=== PATIENT | female | born 1985 | race Hispanic/Latino ===

== ENCOUNTER → 2023-10-08 | Emergency (ER) | payer SELFPAY ==
[~2023-10-08] MED LIST: DIPHENHYDRAMINE 25 MG TAB/CAP ONE; DOXYCYCLINE 100 MG CAP PO ONE; FAMOTIDINE 20 MG TAB ONE; predniSONE 20 MG TAB ONE
--- NOTE | 2023-10-08 11:15 | ER ---
Nurse's Notes [facility] Name: Coty Scott Age: 37 yrs Sex: Female : 1985 Arrival Date: 10/08/2023 Time: 10:34 Bed 12 Private MD: Diagnosis: Dermatitis, unspecified;Insect allergy status;Allergic contact dermatitis, unspecified cause Presentation: 10/08 10:47 Chief complaint: Patient states: Rash to legs for 4 days with itching. Coronavirus ll1 screen: Client denies travel out of the [place] in the last 14 days. At this time, the client does not indicate any symptoms associated with coronavirus-19. Ebola Screen: Patient denies travel to an Ebola-affected area in the 21 days before illness onset. Initial Sepsis Screen: Does the patient meet any 2 criteria? No. Patient's initial sepsis screen is negative. Does the patient have a suspected source of infection? Yes: Skin breakdown/wound. Risk Assessment: Do you want to hurt yourself or someone else? Patient reports no desire to harm self or others. Onset of symptoms was October 05, 2023. 10:47 Method Of Arrival: Ambulatory ll1 10:47 Acuity: EBONY 4 ll1 Historical: - Allergies: 10:48 No Known Allergies; ll1 - PMHx: 10:48 None; ll1 - PSHx: 10:48 None; ll1 - Immunization history:: Adult Immunizations up to date. - Social history:: Smoking status: Patient denies any tobacco usage or history of. - Family history:: not pertinent. Screenin:01 [facility] ED Fall Risk Assessment (Adult) Score/Fall Risk Level 0 - 2 = Low Risk. Abuse as6 screen: Denies threats or abuse. Denies injuries from another. Nutritional screening: No deficits noted. Tuberculosis screening: No symptoms or risk factors identified. Assessment: 12:06 General: Appears in no apparent distress. Behavior is calm, cooperative. Pain: Denies as6 pain. Respiratory: Airway is patent Trachea midline Respiratory effort is even, unlabored, Respiratory pattern is regular, symmetrical. Derm: Rash noted that is macular, itchy, papular, raised, on left leg and right leg and left arm and right arm and abdomen and chest and buttocks and back. Vital Signs: 10:47 BP 135 / 82; Pulse 75; Resp 16; Temp 98; Pulse Ox 100% ; Weight 63.5 kg; Height 5 ft. 0 ll1 in. ; Pain 0/10; 10:47 Body Mass Index 27.34 (63.50 kg, 152.4 cm) ll1 10:47 Pain Scale: Adult ll1 ED Course: 10:38 Patient arrived in ED. mr 10:40 Herberth Zelaya MD is Attending Physician. [facility] 10:48 Triage completed. ll1 10:48 Arm band placed on Patient placed in an exam room, on a stretcher. ll1 11:13 Christopher Veliz DO is Referral Physician. [facility] 11:18 Germaine Carmona, JAH is Primary Nurse. ll1 11:18 PREGU Sent. ll1 11:18 Urinalysis w/ reflexes Sent. ll1 12:01 Bed in low position. Call light in reach. Provided Education on: follow up, rx teaching as6 . 12:01 No provider procedures requiring assistance completed. Patient did not have IV access as6 during this emergency room visit. Administered Medications: 12:00 Drug: Famotidine PO 40 mg PO once Route: PO; as6 12:02 Follow up: Response: No adverse reaction as6 12:00 Drug: predniSONE PO 60 mg PO once Route: PO; as6 12:02 Follow up: Response: No adverse reaction as6 12:00 Drug: Doxycycline PO 200 mg PO once Route: PO; as6 12:02 Follow up: Response: No adverse reaction as6 12:01 Drug: diphenhydrAMINE PO 50 mg PO once Route: PO; as6 12:02 Follow up: Response: No adverse reaction as6 Medication: 12:01 VIS not applicable for this client. as6 Outcome: 11:14 Discharge ordered by . [facility] 12:02 Discharged to home ambulatory, with significant other, as6 12:02 Condition: stable 12:05 Discharge instructions given to patient, significant other, Instructed on discharge as6 instructions, follow up and referral plans. medication usage, Demonstrated understanding of instructions, follow-up care, medications, Prescriptions given X 4, 12:06 Patient left the ED. as6 Signatures: Herberth Zelaya MD MD cha Rivera, Mary, Reg Reg mr Germaine Carmona, RN RN 1 Santosh Mack RN RN as6
--- NOTE | 2023-10-08 11:15 | EDPHYS ---
Physician Documentation [facility] Name: Coty Scott Age: 37 yrs Sex: Female : 1985 Arrival Date: 10/08/2023 Time: 10:34 Bed 12 Private MD: ED Physician Herberth Zelaya HPI: 10/08 11:07 This 37 yrs old Female presents to ER via Ambulatory with complaints of Rash. chai 11:07 The patient's rash thought to be caused by insect bites, Dermatitis. The rash is chai located on the body diffusely. The rash can be described as erythematous, patchy, raised. Onset: The symptoms/episode began/occurred 3 day(s) ago. Associated signs and symptoms: Pertinent positives: burning sensation, itching. Severity of symptoms: At their worst the symptoms were moderate in the emergency department the symptoms are unchanged. The patient has not experienced similar symptoms in the past. Historical: - Allergies: 10:48 No Known Allergies; ll1 - PMHx: 10:48 None; ll1 - PSHx: 10:48 None; ll1 - Immunization history:: Adult Immunizations up to date. - Social history:: Smoking status: Patient denies any tobacco usage or history of. - Family history:: not pertinent. ROS: 11:07 Constitutional: Negative for fever, chills, and weight loss, Eyes: Negative for injury, chai pain, redness, and discharge, ENT: Negative for injury, pain, and discharge, Neck: Negative for injury, pain, and swelling, Cardiovascular: Negative for chest pain, palpitations, and edema, Respiratory: Negative for shortness of breath, cough, wheezing, and pleuritic chest pain, Abdomen/GI: Negative for abdominal pain, nausea, vomiting, diarrhea, and constipation, Back: Negative for injury and pain, : Negative for injury, bleeding, discharge, and swelling, MS/Extremity: Negative for injury and deformity, Neuro: Negative for headache, weakness, numbness, tingling, and seizure, Psych: Negative for depression, anxiety, suicide ideation, homicidal ideation, and hallucinations, Allergy/Immunology: Negative for hives, rash, and allergies, Endocrine: Negative for neck swelling, polydipsia, polyuria, polyphagia, and marked weight changes, Hematologic/Lymphatic: Negative for swollen nodes, abnormal bleeding, and unusual bruising, 11:07 Skin: Positive for cellulitis, erythema, rash, diffusely, Exam: 11:07 Constitutional: This is a well developed, well nourished patient who is awake, alert, chai and in no acute distress. Head/Face: Normocephalic, atraumatic. Eyes: Pupils equal round and reactive to light, extra-ocular motions intact. Lids and lashes normal. Conjunctiva and sclera are non-icteric and not injected. Cornea within normal limits. Periorbital areas with no swelling, redness, or edema. ENT: Nares patent. No nasal discharge, no septal abnormalities noted. Tympanic membranes are normal and external auditory canals are clear. Oropharynx with no redness, swelling, or masses, exudates, or evidence of obstruction, uvula midline. Mucous membranes moist. Neck: Trachea midline, no thyromegaly or masses palpated, and no cervical lymphadenopathy. Supple, full range of motion without nuchal rigidity, or vertebral point tenderness. No Meningismus. Chest/axilla: Normal chest wall appearance and motion. Nontender with no deformity. No lesions are appreciated. Cardiovascular: Regular rate and rhythm with a normal S1 and S2. No gallops, murmurs, or rubs. Normal PMI, no JVD. No pulse deficits. Respiratory: Lungs have equal breath sounds bilaterally, clear to auscultation and percussion. No rales, rhonchi or wheezes noted. No increased work of breathing, no retractions or nasal flaring. Abdomen/GI: Soft, non-tender, with normal bowel sounds. No distension or tympany. No guarding or rebound. No evidence of tenderness throughout. Back: No spinal tenderness. No costovertebral tenderness. Full range of motion. Pelvic Exam: Normal external genitalia. Speculum exam with closed cervical os, no discharge or bleeding noted. Bimanual exam with normal adnexa, no adnexal or cervical motion tenderness. Normal uterus. Female : Normal external genitalia. MS/ Extremity: Pulses equal, no cyanosis. Neurovascular intact. Full, normal range of motion. Neuro: Awake and alert, GCS 15, oriented to person, place, time, and situation. Cranial nerves II-XII grossly intact. Motor strength 5/5 in all extremities. Sensory grossly intact. Cerebellar exam normal. Normal gait. Psych: Awake, alert, with orientation to person, place and time. Behavior, mood, and affect are within normal limits. 11:07 Skin: Appearance: Color: normal in color, Temperature: normal temperature, Moisture: normal moisture, petechiae, not noted, ecchymosis, not noted, flushing, not noted, diaphoresis is not appreciated, cellulitis, that is mild, induration, that is mild is noted, located on the back, buttocks, chest, abdomen, right arm, left arm, right leg and left leg, Vital Signs: 10:47 BP 135 / 82; Pulse 75; Resp 16; Temp 98; Pulse Ox 100% ; Weight 63.5 kg; Height 5 ft. 0 ll1 in. ; Pain 0/10; 10:47 Body Mass Index 27.34 (63.50 kg, 152.4 cm) ll1 10:47 Pain Scale: Adult ll1 MDM: 10:40 Patient medically screened. chai 10:50 Patient medically screened. [facility] 11:07 Differential diagnosis: allergic reaction. Data reviewed: vital signs, nurses notes, [facility] lab test result(s). Consideration of Admission/Observation Escalation of care including admission/observation considered. I considered the following discharge prescriptions or medication management in the emergency department Medications were administered in the Emergency Department. See MAR. Independent interpretation of the following test(s) in the Emergency Department. Test considered but Not performed: Labs: no labs. Historians other than the Patient: Spouse/Significant Other: well informed. Care significantly affected by the following chronic conditions: none. 10/08 11:07 Order name: Urinalysis w/ reflexes chai 10/08 11:07 Order name: ARNEL paula Administered Medications: 12:00 Drug: Famotidine PO 40 mg PO once Route: PO; as6 12:02 Follow up: Response: No adverse reaction as6 12:00 Drug: predniSONE PO 60 mg PO once Route: PO; as6 12:02 Follow up: Response: No adverse reaction as6 12:00 Drug: Doxycycline PO 200 mg PO once Route: PO; as6 12:02 Follow up: Response: No adverse reaction as6 12:01 Drug: diphenhydrAMINE PO 50 mg PO once Route: PO; as6 12:02 Follow up: Response: No adverse reaction as6 Disposition Summary: 10/08/23 11:14 Discharge Ordered Notes: Location: Home [facility] Problem: new [facility] Symptoms: have improved [facility] Condition: Stable [facility] Diagnosis - Dermatitis, unspecified [facility] - Insect allergy status [facility] - Allergic contact dermatitis, unspecified cause [facility] Followup: chai - With: Private Physician - When: 2 - 3 days - Reason: Recheck today's complaints, Continuance of care, Re-evaluation by your physician Followup: [facility] - With: Veliz, Christopher, DO - When: 2 - 3 days - Reason: Recheck today's complaints, Re-evaluation by your physician Discharge Instructions: - Discharge Summary Sheet [facility] - Insect Bite, Adult, [id number] [facility] - Insect Bite, Adult [facility] - Contact Dermatitis [facility] - Rash, Adult [facility] - Rash, Adult, [id number] [facility] - Contact Dermatitis, [id number] [facility] Forms: - Medication Reconciliation Form [facility] - Thank You Letter [facility] - Antibiotic Education [facility] - Prescription Opioid Use [facility] - Patient Portal Instructions [facility] - Leadership Thank You Letter [facility] Prescriptions: - Benadryl 25 mg Oral capsule - take 2 capsule ORAL route every 6 hours As needed; 45 tablet; Refills: 0, [facility] Product Selection Permitted - Pepcid 20 mg Oral tablet - take 1 tablet ORAL route every 12 hours for 21 days; 42 tablet; Refills: 0, [facility] Product Selection Permitted - Doxycycline Hyclate 100 mg Oral Tablet - take 1 tablet ORAL route every 12 hours; 20 tablet; Refills: 0, Product [facility] Selection Permitted - Prednisone 20 mg Oral Tablet - take 2 tablets ORAL route once daily for 5 days; 10 tablet; Refills: 0, Product [facility] Selection Permitted Signatures: Dispatcher [employer] Herberth Mcarthur MD MD cha Lewis, Lynsay RN RN ll1 Santosh Mack RN RN as6
[2023-10-08 11:40] LABS: Specific Gravity 1.021 (1.005-1.030)
[2023-10-08 11:51] LABS: Specific Gravity 1.021 (1.005-1.030); Urine Bacteria 20-50 /HPF (<20); Urine Bilirubin NEGATIVE (Negative); Urine Blood Negative (Negative); Urine Clarity Extremely Turbid (Clear); Urine Color Yellow (Yellow); Urine Glucose NEGATIVE (Negative); Urine Mucus Slight /HPF (None Seen); Urine Protein NEGATIVE (Negative); Urine Urobilinogen Normal (Normal); Urine pH 5.5 (5.0-7.0)
[2023-10-08 12:22] VITALS: BP 135/82; TEMP 98; O2SAT 100
== END ==
LOC: ER 10:34
DX: L23.9 Allergic contact dermatitis, unspecified cause (principal); Z91.038 Other insect allergy status
CPT/HCPCS: 81001; 81025; J7512

== ENCOUNTER → 2023-10-12 | Emergency (ER) | payer OTHER ==
--- NOTE | 2023-10-12 15:13 | ER ---
Nurse's Notes [facility] Name: Coty Scott Age: 37 yrs Sex: Female : 1985 Arrival Date: 10/12/2023 Time: 14:38 Bed 10 Private MD: Diagnosis: Dermatitis, unspecified Presentation: 10/12 14:49 Chief complaint: Patient states: Rash to body is getting worse. Coronavirus screen: ll1 Client denies travel out of the [place] in the last 14 days. Ebola Screen: Patient denies travel to an Ebola-affected area in the 21 days before illness onset. Initial Sepsis Screen: Does the patient meet any 2 criteria? No. Patient's initial sepsis screen is negative. Does the patient have a suspected source of infection? Yes: Skin breakdown/wound. Risk Assessment: Do you want to hurt yourself or someone else? Patient reports no desire to harm self or others. Onset of symptoms was October 08, 2023. 14:49 Method Of Arrival: Ambulatory ll1 14:49 Acuity: EBONY 4 ll1 Triage Assessment: 14:50 General: Appears in no apparent distress. Behavior is calm, cooperative, appropriate ll1 for age. Pain: Denies pain. Derm: Reports rash with itching. 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 - Social history:: Smoking status: Patient denies any tobacco usage or history of. - Family history:: not pertinent. Screenin:31 [facility] ED Fall Risk Assessment (Adult) History of falling in the last 3 months, tl4 including since admission No falls in past 3 months (0 pts) Confusion or Disorientation No (0 pts) Intoxicated or Sedated No (0 pts) Impaired Gait No (0 pts) Mobility Assist Device Used No (0 pt) Altered Elimination No (0 pt) Score/Fall Risk Level 0 - 2 = Low Risk Oriented to surroundings, Maintained a safe environment, Educated pt \T\ family on fall prevention, incl call for assistance when getting out of bed, Assessed \T\ reinforced patient's understanding of fall precautions, Provided non-skid footwear, Hourly rounding (assess needs \T\ fall precautionary measures) done, Used ambulatory aids as needed (educated on \T\ assisted with), Used gait belt as appropriate. Abuse screen: Denies threats or abuse. Denies injuries from another. Nutritional screening: No deficits noted. Tuberculosis screening: No symptoms or risk factors identified. Assessment: 15:30 Reassessment: No changes from previously documented assessment. Patient and/or family tl4 updated on plan of care and expected duration. Pain level reassessed. Patient is alert, oriented x 3, equal unlabored respirations, skin warm/dry/pink. Vital Signs: 14:49 BP 116 / 77; Pulse 81; Resp 16; Temp 98.4; Pulse Ox 100% ; ll1 15:30 BP 112 / 70; Pulse 84; Resp 18; Temp 98.1(TE); Pulse Ox 98% on R/A; Pain 0/10; tl4 15:30 Pain Scale: Adult tl4 Vitals: 15:30 Cardiac Rhythm Assessment Regular. tl4 [place] Coma Score: 15:30 Eye Response: spontaneous(4). Motor Response: obeys commands(6). Verbal Response: tl4 oriented(5). Total: 15. ED Course: 14:41 Patient arrived in ED. rg4 14:41 Josh Hodges MD is Attending Physician. rt 14:50 Triage completed. ll1 14:50 Arm band placed on Patient placed in an exam room, on a stretcher. ll1 15:08 Harman Collazo, JAH is Primary Nurse. tl4 15:12 Christopher Veliz DO is Referral Physician. rt 15:31 Patient has correct armband on for positive identification. Bed in low position. Call tl4 light in reach. Side rails up X 1. Adult w/ patient. Provided Education on: ed process. Door closed. Lights dimmed. Moved to private room. Warm blanket given. 15:32 No provider procedures requiring assistance completed. Patient did not have IV access tl4 during this emergency room visit. Administered Medications: No medications were administered Medication: 15:31 VIS not applicable for this client. tl4 Outcome: 15:12 Discharge ordered by . rt 15:58 Discharged to home ambulatory, with family, tl4 15:58 Condition: stable 15:58 Discharge instructions given to patient, family, Instructed on discharge instructions, follow up and referral plans. medication usage, Demonstrated understanding of instructions, follow-up care, medications, Prescriptions given X 2, 15:59 Patient left the ED. tl4 Signatures: Alexandra Castañeda rg4 Germaine Carmona, RN RN ll1 Josh Hodges MD MD rt Harman Collazo RN RN tl4
--- NOTE | 2023-10-12 15:13 | EDPHYS ---
Physician Documentation [facility] Name: Coty Scott Age: 37 yrs Sex: Female : 1985 Arrival Date: 10/12/2023 Time: 14:38 Bed 10 Private MD: ED Physician Josh Hodges HPI: 10/12 17:46 This 37 yrs old Female presents to ER via Ambulatory with complaints of Rash. rt 17:46 Patient was seen in the ED about 5 days ago for a rash, prescribed doxycycline, rt steroids, Benadryl, Pepcid. States that the rash has not gotten better, has somewhat worsened. Denies itching, pain, fever, other acute complaints, symptoms are moderate in severity, no other aggravating or alleviating factors.. 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 - Social history:: Smoking status: Patient denies any tobacco usage or history of. - Family history:: not pertinent. ROS: 17:46 Constitutional: Negative for fever, chills, and weight loss, Cardiovascular: Negative rt for chest pain, palpitations, and edema, Respiratory: Negative for shortness of breath, cough, wheezing, and pleuritic chest pain, Abdomen/GI: Negative for abdominal pain, nausea, vomiting, diarrhea, and constipation, Neuro: Negative for headache, weakness, numbness, tingling, and seizure, Psych: Negative for depression, anxiety, suicide ideation, homicidal ideation, and hallucinations, 17:46 Skin: Positive for Rash, negative for cellulitis, Exam: 17:46 Constitutional: This is a well developed, well nourished patient who is awake, alert, rt and in no acute distress. Head/Face: Normocephalic, atraumatic. Chest/axilla: Normal chest wall appearance and motion. Nontender with no deformity. No lesions are appreciated. Cardiovascular: Regular rate and rhythm with a normal S1 and S2. No gallops, murmurs, or rubs. Normal PMI, no JVD. No pulse deficits. Respiratory: Lungs have equal breath sounds bilaterally, clear to auscultation and percussion. No rales, rhonchi or wheezes noted. No increased work of breathing, no retractions or nasal flaring. Abdomen/GI: Soft, non-tender, with normal bowel sounds. No distension or tympany. No guarding or rebound. No evidence of tenderness throughout. Neuro: Awake and alert, GCS 15, oriented to person, place, time, and situation. Cranial nerves II-XII grossly intact. Motor strength 5/5 in all extremities. Sensory grossly intact. Cerebellar exam normal. Normal gait. 17:46 Skin: Multiple roughly 1 cm dry patches, not appreciably warm, mildly erythematous, no areas of fluctuance this rash is noted on the bilateral arms, legs, back.. Vital Signs: 14:49 BP 116 / 77; Pulse 81; Resp 16; Temp 98.4; Pulse Ox 100% ; ll1 15:30 BP 112 / 70; Pulse 84; Resp 18; Temp 98.1(TE); Pulse Ox 98% on R/A; Pain 0/10; tl4 15:30 Pain Scale: Adult tl4 [place] Coma Score: 15:30 Eye Response: spontaneous(4). Motor Response: obeys commands(6). Verbal Response: tl4 oriented(5). Total: 15. MDM: 14:53 Patient medically screened. rt 17:46 Differential diagnosis: Cellulitis, dermatitis, eczema. Data reviewed: vital signs, rt nurses notes. Test considered but Not performed: Labs: Stable vital signs,, benign-appearing rash, labs not indicated. Counseling: I had a detailed discussion with the patient and/or guardian regarding the historical points, exam findings, and any diagnostic results supporting the discharge/admit diagnosis, the need for outpatient follow up, to return to the emergency department if symptoms worsen or persist or if there are any questions or concerns that arise at home. Administered Medications: No medications were administered Disposition Summary: 10/12/23 15:12 Discharge Ordered Notes: Location: Home rt Problem: new rt Symptoms: are unchanged rt Condition: Stable rt Diagnosis - Dermatitis, unspecified rt Followup: rt - With: Christopher Veliz, DO - When: 5 - 6 days - Reason: Discharge Instructions: - Discharge Summary Sheet rt - Rash, Adult rt Forms: - Medication Reconciliation Form rt - Thank You Letter rt - Antibiotic Education rt - Prescription Opioid Use rt - Patient Portal Instructions rt - Leadership Thank You Letter rt Prescriptions: - Triamcinolone Acetonide 0.5 % Topical cream - apply 1 application TOPICAL route 2 times per day As needed; 1 Each; Refills: rt 0, Product Selection Permitted - Medrol (Lg) 4 mg Oral Tablets, Dose Pack - take 1 tablet ORAL route as directed - follow package instructions; 1 packet; rt Refills: 0, Product Selection Permitted Signatures: Germaine Carmona RN RN ll1 Josh Hodges MD MD rt
[2023-10-12 16:26] VITALS: BP 112/70; TEMP 98.1; O2SAT 98
== END ==
LOC: ER 14:38
DX: L30.9 Dermatitis, unspecified (principal)